=== PATIENT | male | born 2000 | race Caucasian/White ===

== ENCOUNTER 2018-11-28 01:10 | Inpatient (IN) | payer OTHER ==
[~2018-11-28] VITALS: Ht 175.3 cm; Wt 63.0 kg
[2018-11-28 01:21] VITALS: BP 121/45
[2018-11-28] MEDS ORDERED: LORazepam 2 MG/ML VIAL IVP ONE (04:10)
[2018-11-28] MEDS ORDERED: NACL 0.9% 1,000 ML IV ONE ×2 (04:10→04:20)
[2018-11-28] MEDS ORDERED: LORazepam 2 MG/ML VIAL ONE (04:20)
[2018-11-28 04:49] LABS: BASOPHILS % (AUTO) 0.2 % (0.0-2.0); EOSINOPHILS % (AUTO) 0.1 % (0.0-4.0); HEMATOCRIT 45.5 % (36-52); HEMOGLOBIN 14.5 g/dL (12.0-18.0); LYMPHOCYTES # (AUTO) 1.5 K/uL (2.0-11.5); LYMPHOCYTES % (AUTO) 7.2 % (20.5-51.1); MEAN CORPUSCULAR HEMOGLOBIN 27 pg (27-31); MEAN CORPUSCULAR HGB CONC 32 g/dL (33-37); NEUTROPHILS # (AUTO) 17.9 K/uL (1.8-7.7); PLATELET COUNT (AUTO) 237 K/uL (140-450); RED BLOOD CELL COUNT(AUTO) 5.42 MIL/uL (4.20-6.10); RED CELL DISTRIBUTION WIDTH 14.1 % (11.6-13.7); WHITE BLOOD COUNT (AUTO) 20.4 K/uL (4.5-11.0)
[2018-11-28 04:51] LABS: BARBITURATE, URINE NEG. ng/ml (NEG <=200); BENZODIAZEPINE, URINE NEG. ng/mL (NEG <=200); CANNABINOID, URINE POS. ng/mL (NEG <=50); COCAINE, URINE NEG. ng/mL (NEG <=300); OPIATE, URINE NEG. ng/mL (NEG <=2000); PHENCYCLIDINE SCREEN,URINE NEG. ng/mL (NEG <=25)
[2018-11-28 04:54] LABS: ANION GAP 21.7 (8-16); CARBON DIOXIDE 17.4 mmol/L (21-32); CHLORIDE 99 mmol/L (98-107); CREATININE 1.2 mg/dL (0.7-1.3); GFR ARICAN-AMERICAN 100 mL/min (>90); GLUCOSE 110 mg/dL (74-106); POTASSIUM 4.1 mmol/L (3.5-5.1); SODIUM SERUM 134 mmol/L (136-145); UREA NITROGEN, BLOOD 13 mg/dL (7-18)
[2018-11-28 04:59] LABS: ALBUMIN 3.8 g/dL (3.4-5.0); ASPARTATE AMINOTRANSFERASE 34 U/L (15-37); TOTAL BILIRUBIN 0.4 mg/dL (0.0-1.0)
[2018-11-28 05:02] LABS: NEUTROPHILS % (AUTO) 87.5 % (42.2-75.2)
[2018-11-28 05:03] LABS: ACETAMINOPHEN < 0.5 ug/ml (10-30); SALICYLATE < 2.8 mg/dL (2.8-20.0)
[2018-11-28] MEDS ORDERED: ACETAMINOPHEN 325 MG TAB PO PRN (05:35)
[2018-11-28] MEDS ORDERED: LORazepam 2 MG/ML VIAL IM/IVP PRN (05:35)
[2018-11-28] MEDS ORDERED: FAMOTIDINE 20 MG/2 ML VIAL IV PRN (05:35)
[2018-11-28] MEDS ORDERED: ONDANSETRON 4 MG/2 ML VIAL IM/IVP PRN (05:35)
[2018-11-28] MEDS ORDERED: HYDROcodone/APAP 7.5/325 MG 1 TAB PO PRN (05:35)
[2018-11-28] MEDS ORDERED: DOCUSATE SODIUM 100 MG GELCAP PO PRN (05:35)
[2018-11-28 06:00] VITALS: BP 126/62
[2018-11-28 06:06] LABS: PROTHROMBIN TIME 11.8 secs (10.8-13.4)
[2018-11-28 06:26] LABS: BILIRUBIN,URINE NEGATIVE (NEGATIVE); BLOOD, URINE 2+ (NEGATIVE); COLOR,URINE YELLOW (YELLOW); LEUKOCYTE ESTERASE ,URINE NEGATIVE (NEGATIVE); NITRITE, URINE NEGATIVE (NEGATIVE); PH,URINE 5.5 (5.0-9.0); UGLUCOSE NEGATIVE (NEGATIVE)
[2018-11-28 06:31] LABS: APPEARANCE,URINE SLIGHTLY HAZY (CLEAR)
[2018-11-28 06:38] LABS: WBC,URINE 0-5 /HPF (0-5)
[2018-11-28 06:39] LABS: URINE AMORPHOUS URATE 1+ /HPF (None Seen)
[2018-11-28] MEDS ORDERED: LACTULOSE 20 GM/30 ML UDC PO SCH (07:00)
[2018-11-28 07:22] LABS: ALBUMIN 3.9 g/dL (3.4-5.0); AMYLASE 117 U/L (25-115); CHOL/HDL RATIO 2.1 (1-4.5); FREE T4 (FREE THYROXINE) 1.29 ng/dL (0.76-1.46); HDL CHOLESTEROL 45 mg/dL (40-60); LDL (CALC) 44 mg/dL (60-100); LIPASE 82 U/L (73-393); PHOSPHORUS 4.5 mg/dL (2.5-4.9); THYROID STIMULATING HORMONE 1.81 uIU/mL (0.34-3.74); TRIGLYCERIDES 31 mg/dL (30-150)
[2018-11-28 08:00] VITALS: BP 99/47
[2018-11-28] MEDS: NACL 0.9% 1,000 ML IV SCH ×4 (08:30→21:44)
[2018-11-28 11:54] LABS: ALBUMIN 3.9 g/dL (3.4-5.0); BILIRUBIN,DIRECT 0.1 mg/dL (0.0-0.3); TOTAL BILIRUBIN 0.3 mg/dL (0.0-1.0)
[2018-11-28 12:00] VITALS: BP 117/62
[2018-11-28] MEDS: LACTULOSE 20 GM/30 ML UDC PO SCH ×2 (12:21→20:53)
[2018-11-28 16:00] VITALS: BP 106/40
[2018-11-29] VITALS: BP_SYST 110; BP_SYST 113; BP_DIAS 58; BP_DIAS 61
[2018-11-29] MEDS: NACL 0.9% 1,000 ML IV SCH (04:22)
[2018-11-29 04:31] VITALS: BP 121/41
[2018-11-29] MEDS: LACTULOSE 20 GM/30 ML UDC PO SCH ×2 (06:34→12:39)
[2018-11-29 08:00] VITALS: BP 90/42
[2018-11-29 08:04] LABS: CARBON DIOXIDE 26.9 mmol/L (21-32); CREATININE 0.8 mg/dL (0.7-1.3); POTASSIUM 3.9 mmol/L (3.5-5.1)
[2018-11-29 08:19] LABS: MAGNESIUM 1.8 mg/dL (1.8-2.4); PHOSPHORUS 2.4 mg/dL (2.5-4.9)
[2018-11-29 08:45] LABS: BASOPHILS % (AUTO) 0.3 % (0.0-2.0); EOSINOPHILS % (AUTO) 0.2 % (0.0-4.0); HEMATOCRIT 43.4 % (36-52); HEMOGLOBIN 14.2 g/dL (12.0-18.0); LYMPHOCYTES # (AUTO) 1.3 K/uL (2.0-11.5); LYMPHOCYTES % (AUTO) 9.9 % (20.5-51.1); MEAN CORPUSCULAR HEMOGLOBIN 27 pg (27-31); MEAN CORPUSCULAR HGB CONC 33 g/dL (33-37); MONOCYTES # (AUTO) 0.7 K/uL (0.8-1.0); NEUTROPHILS # (AUTO) 11.4 K/uL (1.8-7.7); NEUTROPHILS % (AUTO) 84.6 % (42.2-75.2); PLATELET COUNT (AUTO) 219 K/uL (140-450); RED BLOOD CELL COUNT(AUTO) 5.29 MIL/uL (4.20-6.10); RED CELL DISTRIBUTION WIDTH 13.7 % (11.6-13.7); WHITE BLOOD COUNT (AUTO) 13.4 K/uL (4.5-11.0)
[2018-11-29 10:14] LABS: CKMB RELATIVE INDEX 0.7 (0.0-2.5); CREATINE KINASE MB 6.3 ng/mL (0-3.6)
[2018-11-29 12:00] VITALS: BP 100/60
[2018-11-29 12:21] LABS: URIC ACID 6.3 mg/dL (2.6-7.2)
[2018-11-29 16:00] VITALS: BP 110/65
[2018-11-29] MEDS ORDERED: KEP500 PO (16:09)
[2018-11-29] MEDS ORDERED: levETIRAcetam 500 MG TAB PO SCH (21:00)
== END 2018-11-29 16:25 | disposition left against medical advice (07) | DRG 917 ==
LOC: MED 01:10 → MTU 05:34
PROVIDERS: ADMIT General Practice; ATTEND General Practice
DX: T43.641A Poisoning by ecstasy, accidental (unintentional), initial encounter (principal); G92 Toxic encephalopathy; N17.0 Acute kidney failure with tubular necrosis; E87.2 Acidosis; E87.1 Hypo-osmolality and hyponatremia; R65.10 Systemic inflammatory response syndrome (SIRS) of non-infectious origin without acute organ dysfunction; K72.90 Hepatic failure, unspecified without coma; E83.39 Other disorders of phosphorus metabolism; F12.90 Cannabis use, unspecified, uncomplicated; F15.10 Other stimulant abuse, uncomplicated; G40.909 Epilepsy, unspecified, not intractable, without status epilepticus; J45.909 Unspecified asthma, uncomplicated; Y92.89 Other specified places as the place of occurrence of the external cause; R00.0 Tachycardia, unspecified; D72.829 Elevated white blood cell count, unspecified; E86.0 Dehydration; T40.601A Poisoning by unspecified narcotics, accidental (unintentional), initial encounter
CPT/HCPCS: 36415; 70450; 71045; 76705; 80048; 80053; 80076; 80305; 81001; 82040; 82140; 82150; 82550; 82553; 83036; 83605; 83690; 83735; 83880; 84100; 84439; 84443; 84484; 84550; 85025; 85610; 85730; 87040; 87081; 87086; 93005; 95816; 96361; 96374; 99285; C1758; G0480; G0482; J0696; J2060; J7030; J7060; Q0092